=== PATIENT | male | born 1960 | race Caucasian/White ===

== ENCOUNTER → 2017-06-11 | Outpatient (CLI) | payer BC, OTHER ==
--- NOTE | 2017-06-11 16:28 | PCVCIMAG ---
APPROVED REPORT Study performed: 06/11/2017 14:41:37 EXAM: Comprehensive 2D, Doppler, and color-flow Echocardiogram Patient Location: Echo lab Status: routine BSA: 2.15 HR: 57 bpmBP: 110/70 mmHg Rhythm: NSR Other Information Study Quality: Good Risk Factors: Cardiac Risk Factors: HTN Indications CAD Palpitations Pre-op Evaluation 2D Dimensions LVEF(%): 53.96 (>50%) IVSd: 9.04 (7-11mm)LVOT Diam: 21.11 (18-24mm) LVDd: 57.95 mm PWd: 10.23 (7-11mm)Ascending Ao: 33.55 (22-36mm) LVDs: 41.53 (25-40mm) Left Atrium: 38.93 (27-40mm) Aortic Root: 31.06 mm LV Single Plane 4CH: 59.94 % LV Single Plane 2CH: 66.82 %Sofia's LVEF: 63.38 % Biplane EF: 62.5 % Volumes Left Atrial Volume (Systole) Single Plane 4CH: 39.93 mLSingle Plane 2CH: 52.73 mL LA ESV Index: 22.00 mL/m2 Aortic Valve AoV Peak Charly.: 1.43 m/s AO Peak Gr.: 8.77 mmHgLVOT Max P.71 mmHg LVOT Max V: 1.02 m/s JENNIFER Vmax: 2.50 cm2 Mitral Valve E/A Ratio: 0.7 MV Decel. Time: 340.49 ms MV E Max Charly.: 0.50 m/s MV A Charly.: 0.68 m/s IVRT: 55.36 ms TDI E/Lateral E': 5.00E/Medial E': 8.33 Medial E' Charly.: 0.06 m/s Lateral E' Charly.: 0.10 m/s Pulmonary Valve PV Peak Charly.: 0.86 m/sPV Peak Gr.: 2.94 mmHg Pulmonary Vein P Vein S: 0.67 m/sP Vein A: 0.26 m/s P Vein D: 0.49 m/sP Vein A Dur.: 124.6 msec P Vein S/D Ratio: 1.37 Tricuspid Valve TR Peak Charly.: 1.94 m/s TR Peak Gr.: 15.04 mmHg Left Ventricle The left ventricle is normal size. There is normal LV segmental wall motion. There is normal left ventricular wall thickness. Left ventricular systolic function is normal. The left ventricular ejection fraction is within the normal range. LVEF is 60-65%. Grade I - abnormal relaxation pattern. Right Ventricle The right ventricle is normal size. The right ventricular systolic function is normal. Atria The left atrium size is normal. The atrial septum is aneurysmal. The right atrium size is normal. Aortic Valve The aortic valve is normal in structure. No aortic regurgitation is present. There is no aortic valvular stenosis. Mitral Valve The mitral valve is normal in structure. There is no mitral valve regurgitation noted. No evidence of mitral valve stenosis. Tricuspid Valve The tricuspid valve is normal in structure. Trace tricuspid regurgitation. Pulmonic Valve The pulmonary valve is normal in structure. Trace pulmonic regurgitation. Great Vessels The aortic root is normal in size. IVC is not visualized. Pericardium There is no pericardial effusion. <Conclusion> The left ventricle is normal size. LVEF is 60-65%. The left atrium size is normal. The right atrium size is normal. The atrial septum is aneurysmal. The aortic valve is normal in structure. The mitral valve is normal in structure. The tricuspid valve is normal in structure. Trace tricuspid regurgitation. The pulmonary valve is normal in structure. Trace pulmonic regurgitation. There is no pericardial effusion.
== END | disposition home or self-care (01) ==
LOC: PCVCIMAG 14:51
PROVIDERS: ATTEND Internal Medicine
DX: I07.1 Rheumatic tricuspid insufficiency (principal); I37.1 Nonrheumatic pulmonary valve insufficiency; I10 Essential (primary) hypertension; I25.10 Atherosclerotic heart disease of native coronary artery without angina pectoris; R00.2 Palpitations
CPT/HCPCS: 93306